=== PATIENT | female | born 1945 | race Caucasian/White ===

== ENCOUNTER 2018-12-20 13:00 | Emergency (ER) | payer MEDICARE ==
[2018-12-20 13:16] VITALS: BP 180/82
--- NOTE | 2018-12-20 13:42 | ED ---
Upper Extremity Pain - HPI Summary HPI Summary: 73 yr old female with the complaint of severe 10/10 left shoulder pain for a week. The pain began one week ago upon waking up in the morning. She has had increased shortness of breath. The pain is worse with ROM to some extent, but also with deep breaths. The patient has not had fever or chills. She has pain in the shoulder that radiates into the left fingers with some tingling. She denies chest pain. She states she was recently in the hospital for COPD. - History of Current Complaint Chief Complaint: UCUpperExtremity Stated Complaint: LT SHOULDER/ARM PAIN, NUMBNESS Time Seen by Provider: 12/20/18 13:16 - Allergies/Home Medications Allergies/Adverse Reactions: Allergies Allergy/AdvReac Type Severity Reaction Status Date / Time alprazolam Allergy Unknown Verified 12/20/18 13:21 Reaction Details amlodipine Allergy Unknown Verified 12/20/18 13:21 Reaction Details celecoxib [From Celebrex] Allergy Unknown Verified 12/20/18 13:21 Reaction Details ciprofloxacin [From Cipro] Allergy Unknown Verified 12/20/18 13:21 Reaction Details clarithromycin Allergy Unknown Verified 12/20/18 13:21 Reaction Details doxycycline Allergy Unknown Verified 12/20/18 13:21 Reaction Details fluticasone Allergy Unknown Verified 12/20/18 13:21 Reaction Details guaifenesin Allergy Unknown Verified 12/20/18 13:21 Reaction Details hydrocodone Allergy Unknown Verified 12/20/18 13:21 Reaction Details Iodine and Iodide Containing Allergy Unknown Verified 12/20/18 13:21 Produc Reaction Details losartan Allergy Unknown Verified 12/20/18 13:21 Reaction Details meloxicam Allergy Unknown Verified 12/20/18 13:21 Reaction Details nitrofurantoin Allergy Unknown Verified 12/20/18 13:21 Reaction Details pantoprazole Allergy Unknown Verified 12/20/18 13:21 Reaction Details pseudoephedrine Allergy Unknown Verified 12/20/18 13:21 Reaction Details salmeterol Allergy Unknown Verified 12/20/18 13:21 Reaction Details shellfish derived Allergy Unknown Verified 12/20/18 13:21 Reaction Details Sulfa (Sulfonamide Allergy Unknown Verified 12/20/18 13:21 Antibiotics) Reaction Details Home Medications: Home Medications Albuterol HFA INHALER* [Ventolin HFA Inhaler*] 2 puff INH QID PRN 12/20/18 [ History Confirmed 12/20/18] Budesonide/Formote 160/4.5(NF) [Symbicort 160/4.5 (NF)] 1 puff INH BID 12/20/18 [History Confirmed 12/20/18] Fexofenadine (NF) [Alb[place] (NF)] 60 mg PO DAILY 12/20/18 [History Confirmed ] Furosemide TAB* [Lasix TAB*] 20 mg PO DAILY 12/20/18 [History Confirmed 12/20/18 ] LORazepam TAB(*) [Ativan 1 MG TAB (*)] 1 mg PO TID PRN 12/20/18 [History Confirmed 12/20/18] Loratadine [Claritin 10 MG CAP] 10 mg PO DAILY 12/20/18 [History Confirmed 12/20] Potassium Chlor TAB* [Klor Con ER TAB*] 20 meq PO BID 12/20/18 [History Confirmed 12/20/18] cloNIDine TAB* [Catapres 0.1 MG TAB*] 0.1 mg PO TID 12/20/18 [History Confirmed 12/20/18] PMH/Surg Hx/FS Hx/Imm Hx Respiratory History: Reports: Hx Chronic Obstructive Pulmonary Disease (COPD) Infectious Disease History: No Infectious Disease History: Denies: Traveled Outside the [place] in Last 30 Days - Family History Known Family History: Positive: None - Social History Alcohol Use: None Substance Use Type: Reports: None Smoking Status (MU): Former Smoker Review of Systems Constitutional: Negative Positive: Other - shoulder pain All Other Systems Reviewed And Are Negative: Yes Physical Exam Triage Information Reviewed: Yes Vital Signs On Initial Exam: Initial Vitals Temp Pulse Resp BP Pulse Ox 98.2 F 114 22 180/82 92 12/20/18 13:09 12/20/18 13:09 12/20/18 13:09 12/20/18 13:12/20/18 13:09 Vital Signs Reviewed: Yes Appearance: Positive: Well-Appearing, Pain Distress Skin: Positive: Warm, Skin Color Reflects Adequate Perfusion Head/Face: Positive: Normal Head/Face Inspection Eyes: Positive: EOMI, CARLOS ENT: Positive: Normal ENT inspection Neck: Positive: Nontender Respiratory/Lung Sounds: Positive: Clear to Auscultation, Breath Sounds Present Cardiovascular: Positive: Tachycardia. Negative: Murmur Abdomen Description: Negative: Distended Musculoskeletal: Positive: Other - she has limited forward flexion and abduction of the left shoulder due to pain. No swelling, no erythema, no bruise. Neurological: Positive: Sensory/Motor Intact, Alert, Oriented to Person Place, Time, CN Intact II-III Psychiatric: Positive: Normal - Kraly Coma Scale Best Eye Response: 4 - Spontaneous Best Motor Response: 6 - Obeys Commands Best Verbal Response: 5 - Oriented Coma Scale Total: 15 Diagnostics - Vital Signs Vital Signs Temp Pulse Resp BP Pulse Ox 12/20/18 13:09 98.2 F 114 22 180/82 92 - Laboratory Lab Statement: Any lab studies that have been ordered have been reviewed, and results considered in the medical decision making process. - Radiology left shoulder and chest pa lat Radiology Interpretation Completed By: Radiologist Magali alejandro - EKG 12/20/18 Cardiac Rate: Tachycardia EKG Rhythm: Sinus Tachycardia ST Segment: Non-Specific - lateral ST depressions. Ectopy: None Course/Dx - Course Course Of Treatment: The patient was advised to go to the ER for further work up but she refuses, and signs out AMA. Etiology of her 10/10 shoulder pain with hypertension is not known at this time, and it is concerning. She was informed of risk of and disabiltiy and she signed out AMA refusing transfer by ambulance to the hospital regardless of this warning. She verbalized she is not going to the hospital at all. - Diagnoses Provider Diagnoses: Hypertension, Left shoulder pain Discharge - Sign-Out/Discharge Documenting (check all that apply): Patient Departure All imaging exams completed and their final reports reviewed: Yes - Discharge Plan Condition: Fair Disposition: AGAINST MEDICAL ADVICE Referrals: Renzo Tijerina [Primary Care Provider] - - Billing Disposition and Condition Condition: FAIR Disposition: Against Medical Advice
== END 2018-12-20 14:26 | disposition left against medical advice (07) ==
LOC: UCCORT 13:00
DX: M25.512 Pain in left shoulder (principal); I10 Essential (primary) hypertension; J44.9 Chronic obstructive pulmonary disease, unspecified; Z87.891 Personal history of nicotine dependence
CPT/HCPCS: 71046; 93005; 99202; G0463